=== PATIENT | male | born 1955 | race Caucasian/White ===

== ENCOUNTER → 2017-05-07 | Outpatient (CLI) | payer MEDICAID ==
--- NOTE | 2017-05-07 23:14 | MR ---
EXAMINATION TYPE: MR knee RT wo con DATE OF EXAM: 05/07/2017 COMPARISON: NONE HISTORY: Right Knee pain and swelling x6 months TECHNIQUE: Multiplanar, multisequence imaging of the right knee is performed without IV contrast. FINDINGS: There is a large knee joint effusion. The anterior and posterior cruciate ligaments are intact. There is a 2 cm area of cystic fluid signal in the posterior aspect of the medial tibial condyle. The keith ateral ligaments are intact. There is extensive abnormal increased signal in the anterior and posterior horns of the medial menisc us. This is worse in the posterior horn which is demonstrating extensive complex tear. The lateral meniscus appears intact. There is narrowing of the medial joint space. The patella appear s intact. I see no fracture. There is slight increased signal on the T2 images on both sides of the m edial joint space. This is consistent with edema. IMPRESSION: Moderate osteoarthritis in the medial joint space with extensive complex tear of the anterior and pos terior horns of the medial meniscus. This is worse in the posterior horn. Large knee joint effusion. 16 mm popliteal cyst noted posteriorly. No evidence of ligamentous tear. Bone edema on both sides of the medial joint space consistent with bone bruise. Large area of degenerative cyst formation in the posterior aspect medial tibial condyle. There is some intermediate signal material within the suprapatellar large joint effusion that could r elate to synovial chondromatosis.
== END | disposition home or self-care (01) ==
LOC: RADMRIMAIN 20:58
PROVIDERS: ATTEND Orthopaedic Surgery
DX: S83.231A Complex tear of medial meniscus, current injury, right knee, initial encounter (principal); M17.11 Unilateral primary osteoarthritis, right knee; M71.21 Synovial cyst of popliteal space [Baker], right knee; M85.661 Other cyst of bone, right lower leg

== ENCOUNTER → 2019-03-12 | Outpatient (CLI) | payer MEDICAID | LOC: LABPAT 12:03 | PROVIDERS: ATTEND Orthopaedic Surgery | DX: Z01.812 Encounter for preprocedural laboratory examination (principal) | CPT/HCPCS: 87070 ==

== ENCOUNTER → 2019-03-25 | Outpatient (CLI) | payer MEDICAID ==
--- NOTE | 2019-03-26 11:51 | ECHOF ---
Referral Reason:R94.31 Abnormal electrocardiogram [ECG] [EKG] MEASUREMENTS -------- HEIGHT: 175.3 cm WEIGHT: 70.3 kg BP: RVIDd: 4.2 cm (< 3.3) IVSd: 1.6 cm (0.6 - 1.1) LVIDd: 4.1 cm (3.9 - 5.3) LVPWd: 1.3 cm (0.6 - 1.1) IVSs: 2.2 cm LVIDs: 2.3 cm LVPWs: 2.1 cm LAESV Index (A-L): 42.23 ml/m Ao Diam: 2.9 cm (2.0 - 3.7) AV Cusp: 2.3 cm (1.5 - 2.6) LA Diam: 3.4 cm (2.7 - 3.8) TAPSE: 3.3 cm EPSS: 0.5 cm MV E Parag: 0.81 m/s MV DecT: 172 ms MV A Parag: 0.65 m/s MV E/A Ratio: 1.24 RAP: 5.00 mmHg RVSP: 34.37 mmHg MV EF SLOPE: 143.61 mm/s (70 - 150) MV EXCURSION: 1.95 cm (> 18.000) FINDINGS -------- Sinus rhythm. This was a technically good study. The left ventricular size is normal. There is moderate concentric left ventricular hypertrophy. O verall left ventricular systolic function is normal with, an EF between 65 - 70 %. The diastolic fi lling pattern is normal for the age of the patient 6.03. The right ventricle is moderate to severely enlarged. The right ventricular systolic function is m ildly impaired. LA is severely dilated >40 ml/m2 The right atrial size is normal. Interatrial and interventricular septum intact. The aortic valve is trileaflet and appears structurally normal. There is no evidence of aortic regu rgitation. There is no evidence of aortic stenosis. Mild mitral regurgitation is present. Mild tricuspid regurgitation present. There is mild pulmonary hypertension. The right ventricular systolic pressure, as measured by Doppler, is 34.37mmHg. There is no pulmonic regurgitation present. The aortic root size is normal. The inferior vena cava is mildly dilated. There is no pericardial effusion. CONCLUSIONS -------- 1. Sinus rhythm. 2. This was a technically good study. 3. The left ventricular size is normal. 4. There is moderate concentric left ventricular hypertrophy. 5. Overall left ventricular systolic function is normal with, an EF between 65 - 70 %. 6. The diastolic filling pattern is normal for the age of the patient 6.03 7. The right ventricle is moderate to severely enlarged. 8. The right ventricular systolic function is mildly impaired. 9. LA is severely dilated >40 ml/m2 10. The right atrial size is normal. 11. Interatrial and interventricular septum intact. 12. The aortic valve is trileaflet and appears structurally normal. 13. There is no evidence of aortic regurgitation. 14. There is no evidence of aortic stenosis. 15. Mild mitral regurgitation is present. 16. Mild tricuspid regurgitation present. 17. There is mild pulmonary hypertension. 18. The right ventricular systolic pressure, as measured by Doppler, is 34.37mmHg. 19. There is no pulmonic regurgitation present. 20. The aortic root size is normal. 21. The inferior vena cava is mildly dilated. 22. There is no pericardial effusion. MOMD TEACHER: Betsey Rivas RDCS
== END | disposition home or self-care (01) ==
LOC: RADECHMAIN 13:31
PROVIDERS: ATTEND Family Medicine
DX: I08.1 Rheumatic disorders of both mitral and tricuspid valves (principal); I27.20 Pulmonary hypertension, unspecified; I87.8 Other specified disorders of veins
CPT/HCPCS: 93306

== ENCOUNTER 2019-04-03 05:51 | Day surgery (SDC) | payer MEDICAID ==
[2019-03-28 08:43] VITALS: BMI 22.1
--- NOTE | 2019-04-02 13:23 | HP ---
HISTORY AND PHYSICAL Surgery is 04/03/2019. Enrique Whiteside is a 63-year-old patient seen with progressive symptomatic right knee osteoarthritis. After having treatment options discussed with him, he elected to proceed with right total knee arthroplasty. Consent regarding the procedure was obtained. Clearance was provided by [facility]. PAST MEDICAL HISTORY: Noncontributory. PAST SURGICAL HISTORY: Right shoulder arthroscopy with rotator cuff repair. DAILY MEDICATIONS: Ibuprofen. ALLERGIES: None reported. SOCIAL HISTORY: He smokes half pack of cigarettes daily. PHYSICAL EXAMINATION: Physical evaluation of the right knee: Range of motion is -2 to 110. Tenderness medial joint line. Crepitus medial patellofemoral compartments with range of motion. Pain with patellofemoral compression. Genu varum deformity. Hip rotation without pain. Distal neurovascular exam intact. Radiographs right knee, moderate to severe medial compartment and moderate patellofemoral compartment osteoarthritis. IMPRESSION: 1. Right knee osteoarthritis. 2. Tobacco use. PLAN: Right total knee arthroplasty. MMODL / IJN: [id number] /
[~2019-04-03 05:51] MED LIST: ACETAMINOPHEN TAB 500 MG TAB PO ONE; DEXAMETHASONE SOD PHOSPHATE 10 MG/ML 1 ML VIAL IV ONE; HYDROmorphone 0.5 MG/0.5 ML SYRINGE IVP PRN; LACTATED RINGERS 1,000 ML IV SCH; MELOXICAM 7.5 MG TAB PO ONE; MIDAZOLAM 2 MG/2 ML VIAL IV PRN; ONDANSETRON 4 MG/2 ML VIAL IVP ONE; TRANEXAMIC ACID 1,000 MG in SODIUM CHLORIDE 0.9% 100 ML IVPB ONE
[2019-04-03] MEDS ORDERED: PROPOFOL 10 MG/ML 20 ML VIAL IV ONE (07:28)
[2019-04-03] MEDS ORDERED: ROCURONIUM BROMIDE 10 MG/ML 10 ML VIAL IV ONE (07:28)
[2019-04-03] MEDS ORDERED: LIDOCAINE 1% INJ 10MG/ML (20 ML MDV) ONE (07:28)
[2019-04-03] MEDS ORDERED: PHENYLEPHRINE-0.9% NACL SYG 1 MG/10 ML SYRINGE ONE (07:28)
[2019-04-03] MEDS ORDERED: MIDAZOLAM 2 MG/2 ML VIAL ONE (07:28)
[2019-04-03] MEDS ORDERED: SODIUM CHLORIDE 0.9% 100 ML BAG ONE (07:28)
[2019-04-03] MEDS ORDERED: TRANEXAMIC ACID 1,000 MG/10 ML VIAL ONE (07:28)
[2019-04-03] MEDS ORDERED: HYDROmorphone (PF) 1 MG/ML ONE (07:28)
[2019-04-03] MEDS ORDERED: fentaNYL (PF) 50 MCG/ML 2 ML AMP ONE (07:28)
[2019-04-03] MEDS ORDERED: ePHEDrine SULFATE/0.9% NACL/PF 50 MG/5 ML SYRINGE IV ONE (07:28)
[2019-04-03] MEDS: ROPIVACAINE 246.25 MG, EPINEPHrine 0.5 MG, KETOROLAC 30 MG, cloNIDine HCL/PF 80 MCG, WA... MISCELLANE ONE ×10 (08:03→09:45)
[2019-04-03] MEDS ORDERED: LACTATED RINGERS 1,000 ML IV ONE ×2 (09:04→09:24)
[2019-04-03] MEDS ORDERED: ROPIVACAINE 0.2%-NS ON-Q PUMP 1,090 MG, EMPTY PAIN BALL 1 EACH MISCELLANE PRN (09:20)
[2019-04-03] MEDS ORDERED: NALOXONE 0.4 MG/ML 1 ML VIAL IV PRN (09:24)
[2019-04-03] MEDS ORDERED: ONDANSETRON 4 MG/2 ML VIAL IVP PRN (09:24)
[2019-04-03] MEDS ORDERED: HYDROmorphone 0.5 MG/0.5 ML SYRINGE IVP PRN ×2 (09:24)
[2019-04-03] MEDS ORDERED: HYDROcodone/APAP 5-325MG 1 EACH TAB PO PRN ×2 (09:24)
[2019-04-03] MEDS ORDERED: HYDROmorphone 1 MG/ML 1 ML SYRINGE IVP PRN (09:24)
--- NOTE | 2019-04-03 09:24 | P.OP ---
Date of Procedure: 04/03/19 Preoperative Diagnosis: Right knee osteoarthritis Postoperative Diagnosis: Right knee osteoarthritis Procedure(s) Performed: Right total knee arthroplasty Implants: 1. Depuy attune size 6 right cruciate retaining cemented femur 2. Depuy attune size 6 fixed bearing cruciate retaining cemented tibial baseplate 3. Depuy attune size 6 fixed bearing cruciate retaining 6 mm polyethylene tibial insert 4. Depuy attune 41 mm all polyethylene cemented patella Anesthesia: GETA, regional (Adductor canal catheter), local Surgeon: Ramirez Goetz Discharging Machine Operator #1: Justino Buckley Estimated Blood Loss (ml): 25 Pathology: other (Bone) Condition: stable Disposition: PACU Indications for Procedure: 63-year-old patient seen with symptomatic right knee osteoarthritis. After treatment options were discussed with him, he elected to proceed with total knee arthroplasty. Operative Findings: See description of procedure Description of Procedure: Patient was taken to the operative suite after having an adductor canal catheter placed by the department of anesthesia for postoperative pain management. Patient underwent a general anesthetic by the department of anesthesia. Patient was given preoperative IV intake antibiotics and TXA. A well-padded tourniquet was placed about the right lower extremity. The lower extremity was then prepped and draped in the normal sterile orthopedic fashion. The extremity was elevated, a tourniquet was insufflated to 300. A standard anterior incision was made sharply through skin. Dissection was taken down through the subcutaneous soft tissues down to the extensor mechanism. A medial arthrotomy was performed, patella was everted and knee was flexed. There was advanced osteoarthritis noted. I introduced my distal intramedullary femoral drill. I then introduced the distal femoral cutting jig. Maximino NELSON secured the cutting jig with 2 pins. I held retractors in position while Maximino NELSON performed the distal femoral resection through the guide area we now removed her distal femoral cutting guide. We now placed our 4-in-1 femoral cutting block and positioned and it was secured with 2 pins by Maximino NELSON while I held the block in position. The distal femoral finishing was now completed. A proximal tibial cutting guide was positioned. I held the guide in the appropriate position with both hands well Maximino NELSON inserted stabilizing pins into the guide. Proximal tibial cut was made. We now placed a trial femoral component into position, along with an appropriate size tibial tray and insert. We now took the knee through range of motion and had full extension good flexion and good overall soft tissue balance noted. The patella was everted and stabilized with 2 towel clips held by Mxaimino NELSON while I performed a flush with patellar quad tendon utilizing a fresh sawblade. We templated the patella, appropriate drill holes were made. An appropriate trial patella was positioned, knee was taken through full range of motion with the patella tracking very nicely. The trial patella was removed. Drill holes were made through the femoral component. All trial components were removed after marking off the appropriate rotation of the tibia. Retractors were now positioned along the proximal tibia. An appropriate keel punch was made with the appropriate size tibial guide by myself on Maximino NELSON assisted by holding retractors. At this point appropriate size implants were chosen and opened. The joint was irrigated copiously with pulse lavage mechanical irrigation. The posterior capsule was infiltrated with local analgesic. The wound was irrigated with pulse lavage mechanical irrigation. We mixed antibiotic methylmethacrylate. We placed the knee into flexion. We placed multiple retractors assisted by Maximino NELSON to expose the proximal tibia. Once the methyl methacrylate was ready, the tibial component was cemented into place removing any excess methylmethacrylate form by both myself and Maximino NELSON. The femoral component was cemented into place removing the removing any excess methylmethacrylate performed by both myself and Maximino NELSON. We then inserted the appropriate size polyethylene tibial insert. We made sure that it was locked into position. We took the knee into full extension, and then back in a flexion making sure we had removed any excess methylmethacrylate. The patellar component was then cemented down and secured with clamp. Excess methylmethacrylate removed. We kept the knee in full extension, patellar clamp in position until methylmethacrylate had hardened. Once it had hardened the patellar clamp was removed. The knee was taken through full range of motion. The patella tracked nicely. There was good soft tissue balancing. The tourniquet was now released. Additional hemostasis was achieved via electrocautery. A second gram of TXA was given. The wound again was irrigated with pulse lavage mechanical irrigation. The superficial soft tissues were infiltrated local analgesic. The extensor mechanism was repaired with Vicryl. We checked the repair with range of motion and it was stable. The subcutaneous soft tissues were repaired with Vicryl in layers. The skin was approximated with pernio/Dermabond. Sterile dressings were applied followed by loose web roll and Robert bandage. The patient was transferred to a bed, and taken to recovery in stable and satisfactory condition. Maximino NELSON assisted with this complex procedure.
[2019-04-03 09:46] VITALS: TEMP 97.6
[2019-04-03 09:50] VITALS: RESP 16
--- NOTE | 2019-04-03 10:08 | XR ---
EXAMINATION TYPE: XR knee limited RT DATE OF EXAM: 04/03/2019 CLINICAL HISTORY: Right knee pain and arthritis status post total knee replacement. TECHNIQUE: Portable AP and crosstable lateral views of the right knee are obtained immediately posto peratively. COMPARISON: None FINDINGS: Metallic hardware from total right knee arthroplasty is seen and appears satisfactory in a lignment and position. There is evidence of recent surgery with diffuse subcutaneous gas , vertical skin gaby, and percutaneous suprapatellar surgical drain noted. IMPRESSION: METALLIC HARDWARE FROM TOTAL RIGHT KNEE ARTHROPLASTY IS SATISFACTORY IN ALIGNMENT.
--- NOTE | 2019-04-03 11:11 | P.ANPRN ---
Procedure Note - Anesthesia - Nerve Block Performed Right Adductor Canal Infusion Time Out Performed: Yes Date of Procedure: 04/03/19 Procedure Start Time: 06:58 Procedure Stop Time: 07:09 Location of Patient Procedure: PreOp Indication: Acute Post-Operative Pain, Requested by Surgeon Sedation Type: Sedate with meaningful contact maintained Preparation: Sterile Prep, Sterile Dressing Position: Supine Catheter: Indwelling Needle Types: Pajunk Needle Gauge: 21 Ultrasound used to visualize needle placement: Yes Ultrasound used to observe medication spread: Yes Blood Aspirated: No Pain Paresthesia on Injection Noted: No Resistance on Injection: Normal Image Stored and Saved: Yes Events: Uneventful and Well Tolerated (ropi .5% 20cc)
[2019-04-03 12:42] VITALS: BP 149/92; PULSE 62
== END 2019-04-03 13:25 | disposition home health service (06) ==
LOC: OR 05:51
PROVIDERS: ATTEND Orthopaedic Surgery
DX: M17.11 Unilateral primary osteoarthritis, right knee (principal); F17.210 Nicotine dependence, cigarettes, uncomplicated; F17.200 Nicotine dependence, unspecified, uncomplicated; Z88.1 Allergy status to other antibiotic agents; Z98.890 Other specified postprocedural states; Z79.1 Long term (current) use of non-steroidal anti-inflammatories (NSAID); Z80.8 Family history of malignant neoplasm of other organs or systems; Z80.42 Family history of malignant neoplasm of prostate
CPT/HCPCS: 27447; 97161; 64448; 76942; 84132; 88300; 73560; C1776; C1713; J2250; J0171; J1100; J0690; J2405; J2001; J3010; J1885; J1170; J2795; J2370; J2704; J0735

== ENCOUNTER 2019-05-23 22:56 | Emergency (ER) | payer MEDICAID ==
[2019-05-23 23:04] VITALS: BP 163/85; PULSE 65; RESP 18; TEMP 97.4
--- NOTE | 2019-05-23 23:25 | ED ---
Lower Extremity Injury HPI - General Chief Complaint: Extremity Injury, Lower Stated Complaint: knee injury Time Seen by Provider: 05/23/19 23:05 Source: patient Mode of arrival: ambulatory Limitations: no limitations - History of Present Illness Initial Comments: Patient is 63-year-old male presenting to emergency Department chief complaint of knee swelling. He received a totally orthoplasty about 7 weeks ago. Patient reports he has been undergoing physical therapy and recovering well. Patient reports as baseline he does have some mild swelling but today he was at a alliance party when he fell twice but not directly on the knee. Patient does not remember the exact mechanism of the fall. Patient reports he has developed increased swelling since the incident and has pain with activation. Pain is minimal at rest. Patient reports full range of motion but states there is tightness at full flexion. Patient denies any temperature changes or erythema. At this time patient states the pain is a 3 - Related Data Home Medications Medication Instructions Recorded Confirmed Ibuprofen [Advil] 200 mg PO Q8HR PRN 03/28/19 04/03/19 Previous Rx's Medication Instructions Recorded Aspirin [Adult Low Dose Aspirin EC] 81 mg PO BID #60 tablet.dr 04/03/19 Docusate [Colace] 100 mg PO DAILY #30 capsule 04/03/19 Famotidine [Pepcid] 20 mg PO DAILY #30 tablet 04/03/19 Hydrocodone/Acetaminophen [Larose 1 each PO Q6HR PRN #28 tab 04/03/19 5-325] traMADol HCl [Ultram] 50 mg PO Q6H PRN #28 tab 04/03/19 Allergies Allergy/AdvReac Type Severity Reaction Status Date / Time hornet venom Allergy Severe Swelling Verified 04/03/19 06:27 venom-honey bee Allergy Severe Swelling Verified 04/03/19 06:27 [bee venom (honey bee)] acetaminophen [From Larose] Allergy Rash/Hives Verified 05/23/19 23:04 cephalexin monohydrate Allergy Nausea & Verified 04/03/19 06:27 [From Keflex] Vomiting hydrocodone [From Larose] Allergy Rash/Hives Verified 05/23/19 23:04 Review of Systems ROS Statement: Those systems with pertinent positive or pertinent negative responses have been documented in the HPI. ROS Other: All systems not noted in ROS Statement are negative. Past Medical History Past Medical History: Cancer, Osteoarthritis (OA) Additional Past Medical History / Comment(s): SKIN CANCER History of Any Multi-Drug Resistant Organisms: None Reported Past Surgical History: Joint Replacement Additional Past Surgical History / Comment(s): right shoulder surgery,. COLONOSCOPY Past Anesthesia/Blood Transfusion Reactions: No Reported Reaction Past Psychological History: No Psychological Hx Reported Smoking Status: Current every day smoker Past Alcohol Use History: Occasional Past Drug Use History: None Reported - Past Family History Father Family Medical History: Cancer Additional Family Medical History / Comment(s): prostate Sister(s) Family Medical History: Cancer General Exam Limitations: no limitations General appearance: alert, in no apparent distress Head exam: Present: atraumatic, normocephalic, normal inspection Eye exam: Present: normal appearance Pupils: Present: normal accommodation ENT exam: Present: normal exam Neck exam: Present: normal inspection, full ROM Respiratory exam: Present: normal lung sounds bilaterally Cardiovascular Exam: Present: regular rate, normal rhythm, normal heart sounds Extremities exam: Present: full ROM, tenderness (Minimal tenderness), normal capillary refill, joint swelling, other (+2 dorsalis pedis and posterior tibialis bilaterally. No skin discoloration or temperature changes.). Absent: normal inspection (Moderate swelling of the right knee. Scarring from arthroplasty), calf tenderness Back exam: Present: normal inspection, full ROM Neurological exam: Present: alert, oriented X3 Psychiatric exam: Present: normal affect, normal mood Skin exam: Present: warm, dry, intact, normal color Course Vital Signs 05/23/19 23:00 Temperature 97.4 F L Pulse Rate 65 Respiratory 18 Rate Blood Pressure 163/85 O2 Sat by Pulse 100 Oximetry Medical Decision Making - Medical Decision Making Patient is 63-year-old male presenting to emergency department with a chief complaint of right knee swelling. On exam patient does appear to have moderate amount of edema in the right knee. Patient has full range of motion with minimal pain. There appears to be a small laceration on top of the incision site where suspect the patient has suffered trauma. X-ray is indicative of knee effusion. Soft tissue swelling noted. Possible superior patellar chip fract ure. Knee mobilizer applied. Patient will see Dr. Goetz who performed the arthroplasty. No erythema or skin discoloration. Strict return parameters were thoroughly discussed with patient is understanding and agreeable. Case discussed with physician. Disposition Clinical Impression: Patellar sleeve fracture of right knee, Knee effusion, right Disposition: HOME SELF-CARE Condition: Good Instructions (If sedation given, give patient instructions): Patellar Fracture (ED) Additional Instructions: Please follow up with Dr. Goetz. Alternate between Tylenol and ibuprofen for pain control. Remove the immobilizer at night and apply throughout the day. Avoid weightbearing. Is patient prescribed a controlled substance at d/c from ED?: No Referrals: Roxanne Chaidez DO [Primary Care Provider] - 1-2 days Ramirez Goetz DO [Doctor of Osteopathic Medicine] - 1-2 days Time of Disposition: 00:05
--- NOTE | 2019-05-23 23:47 | XR ---
EXAMINATION TYPE: XR knee complete RT DATE OF EXAM: 05/23/2019 COMPARISON: 04/03/2019 HISTORY: Fall. Knee pain TECHNIQUE: 3 views FINDINGS: There is right knee prosthesis. There is anterior soft tissue swelling. There is soft tissu e air above the patella. There is a 2 cm bony density anterior and superior to the patella that could BE a large chip fracture from the patella. The prosthesis appears intact. IMPRESSION: Soft tissue air consistent with laceration. Knee joint effusion. Prepatellar soft tissue swelling. There is probably a large chip fracture of the superior patella.
== END 2019-05-24 00:31 | disposition home or self-care (01) ==
LOC: EC 22:56
DX: S82.091A Other fracture of right patella, initial encounter for closed fracture (principal); S81.011A Laceration without foreign body, right knee, initial encounter; M19.90 Unspecified osteoarthritis, unspecified site; F17.200 Nicotine dependence, unspecified, uncomplicated; Z88.1 Allergy status to other antibiotic agents; Z88.5 Allergy status to narcotic agent; Z88.6 Allergy status to analgesic agent; Z91.030 Bee allergy status; Z91.038 Other insect allergy status; Z79.1 Long term (current) use of non-steroidal anti-inflammatories (NSAID); Z85.828 Personal history of other malignant neoplasm of skin; Z96.651 Presence of right artificial knee joint; W19.XXXA Unspecified fall, initial encounter; Y92.89 Other specified places as the place of occurrence of the external cause
CPT/HCPCS: 99283

== ENCOUNTER 2019-05-29 13:50 | Day surgery (SDC) | payer MEDICAID ==
[2019-05-27 17:53] VITALS: BMI 22.8
--- NOTE | 2019-05-28 19:04 | HP ---
HISTORY AND PHYSICAL DATE OF SURGERY: 05/29/2019 Enrique Whiteside is a 63-year-old patient who was seen with a right knee superior pole patella fracture/quadriceps tendon rupture with history of recent total knee arthroplasty. I recommended open reduction and internal fixation of patella fracture and repair of quadriceps tendon there. I discussed the procedure, risks, complications, benefits, recovery. He was agreeable. Consent was obtained. PAST MEDICAL HISTORY: His past medical history is noncontributory. PAST SURGICAL HISTORY: Right shoulder rotator cuff repair, right total knee arthroplasty. DAILY MEDICATIONS: Ibuprofen. ALLERGIES: NONE. SOCIAL HISTORY: He smokes cigarettes. PHYSICAL EVALUATION OF THE RIGHT KNEE: His previous anterior incision is well healed. He is unable to extend his knee. There is a palpable defect involving the distal quadriceps tendon. There is a moderate effusion present. His collateral ligaments are stable. IMAGING: Radiographs of the right knee revealed superior pole patella fracture with distraction of the fracture approximately 2+ cm. The total knee arthroplasty otherwise appeared stable. IMPRESSION: 1. Right knee superior pole patella fracture with quadriceps tendon tear. 2. Right total knee arthroplasty. 3. Tobacco use. PLAN: Right knee open quadriceps tendon repair and ORIF, patella fracture. MMODL / IJN: [id number] /
[~2019-05-29 13:50] MED LIST changes: -ACETAMINOPHEN TAB 500 MG TAB PO ONE; -HYDROmorphone 0.5 MG/0.5 ML SYRINGE IVP PRN; -MELOXICAM 7.5 MG TAB PO ONE; +SCOPOLAMINE 1.5MG/72HR PATCH TRANSDERM ONE; -TRANEXAMIC ACID 1,000 MG in SODIUM CHLORIDE 0.9% 100 ML IVPB ONE; +fentaNYL (PF) 50 MCG/ML 2 ML AMP IV PRN
[2019-05-29] MEDS ORDERED: MIDAZOLAM 2 MG/2 ML VIAL ONE (15:17)
[2019-05-29] MEDS ORDERED: DEXAMETHASONE SOD PHOSPHATE 4 MG/ML 1 ML VIAL ONE (15:17)
[2019-05-29] MEDS ORDERED: ePHEDrine SULFATE/0.9% NACL/PF 50 MG/5 ML SYRINGE IV ONE (15:17)
[2019-05-29] MEDS ORDERED: fentaNYL (PF) 50 MCG/ML 2 ML AMP ONE (15:17)
[2019-05-29] MEDS ORDERED: .MORPHINE SULFATE (INJ) 10 MG/ML SYRINGE ONE (15:17)
[2019-05-29] MEDS ORDERED: ROPIVACAINE 5 MG/ML 30 ML VIAL ONE (15:17)
[2019-05-29] MEDS ORDERED: PROPOFOL 10 MG/ML 20 ML VIAL IV ONE (15:17)
[2019-05-29] MEDS ORDERED: LIDOCAINE 1% INJ 10MG/ML (20 ML MDV) ONE (15:17)
--- NOTE | 2019-05-29 15:20 | P.ANPRN ---
Procedure Note - Anesthesia - Nerve Block Performed Right Other (see comment) Single Time Out Performed: Yes (femoral) Date of Procedure: 05/29/19 Procedure Start Time: 15:00 Procedure Stop Time: 15:08 Location of Patient: PreOp Indication: Acute Post-Operative Pain, Requested by Surgeon Sedation Type: Sedate with meaningful contact maintained Preparation: Sterile Prep, Sterile Dressing Position: Supine Catheter: None Needle Types: Pajunk Needle Gauge: 20 Ultrasound used to visualize needle placement: Yes Ultrasound used to observe medication spread: Yes Injectate: 0.5% Ropivacaine (see comment for volume) (ropivacaine 0.5% 20 ml + decadron 10 mg) Blood Aspirated: No Pain Paresthesia on Injection Noted: No Resistance on Injection: Normal Image Stored and Saved: Yes Events: Uneventful and Well Tolerated
[2019-05-29] MEDS ORDERED: ceFAZolin 1,000 MG in SODIUM CHLORIDE 0.9% 1,000 ML IRRIGATION ONE (15:45)
[2019-05-29] MEDS ORDERED: LACTATED RINGERS 1,000 ML IV ONE (16:10)
[2019-05-29] MEDS ORDERED: HYDROcodone/APAP 5-325MG 1 EACH TAB PO PRN ×2 (17:06)
[2019-05-29] MEDS ORDERED: hydrOXYzine PAMOATE 25 MG CAP PO PRN (17:06)
[2019-05-29] MEDS ORDERED: HYDROmorphone 0.5 MG/0.5 ML SYRINGE IVP PRN ×2 (17:06)
[2019-05-29] MEDS ORDERED: HYDROmorphone 1 MG/ML 1 ML SYRINGE IVP PRN (17:06)
[2019-05-29] MEDS ORDERED: ONDANSETRON 4 MG/2 ML VIAL IVP PRN (17:06)
--- NOTE | 2019-05-29 17:06 | P.OP ---
Date of Procedure: 05/29/19 Preoperative Diagnosis: Right knee superior pole patella fracture and quadriceps tendon rupture Postoperative Diagnosis: 1. Right knee superior pole periprosthetic patella fracture 2. Right knee distal quadriceps tendon rupture Procedure(s) Performed: 1. Open reduction and internal fixation right knee superior pole periprosthetic patella fracture 2. Repair distal quadriceps tendon rupture right knee Implants: 24.75 Arthrex swivel lock anchors Anesthesia: GETA, regional (Adductor canal block) Surgeon: Ramirez Goetz Traffic Worker #1: Justino Buckley Estimated Blood Loss (ml): 35 Pathology: none sent Condition: stable Disposition: PACU Indications for Procedure: 63-year-old patient was seen with right superior pole periprosthetic patella fracture with probable quadriceps tendon rupture and history of total knee arthroplasty. I recommended open repair of the quadriceps tendon tear and probable ORIF patella fracture. Patient was agreeable and consent was obtained. Operative Findings: see description of procedure Description of Procedure: The patient was taken to the operative suite. The patient had undergone and adductor block for postoperative pain management. The patient underwent a general anesthetic by the department of anesthesia. The patient did receive preoperative IV antibiotics. A well-padded tourniquet was placed proximal right lower extremity. The right lower extremity was prepped and draped in the normal sterile orthopedic fashion. The extremity was elevated and tourniquet was insufflated to 300. An incision was made over the previous cicatrix sharply through skin. I immediately encountered significant hemarthrosis which was evacuated. There was a complete quadriceps tendon rupture noted. We irrigated the wound out. I palpated bony fragments superiorly consistent with an avulsion fracture superior pole patella. The total knee arthroplasty. Stable. The patellar resurfacing appeared stable. At this point I meticulously debrided out any abnormal-appearing tissue. I again irrigated the wound. At this point decided to proceed with attempting to repair the superior pole patella fracture. I made 2 drill holes into the superior pole of the patella distally and inserted 2 Arthrex 3.5 anchors. This had sutures attached. I told down most sutures and the anchors immediately came out. There was failure of those anchors. I now decided to tap for a 4.75 Arthrex anchor and I was able to do that. I now placed to #2 FiberWire through to 4.75 anchors and introduced them into the distal portion of patella. I now sewed around the superior pole proximal fragments with the fiber were suture now was able to tie those fragments right down to where they were fractured. I felt we had reasonable stability in that area. I again irrigated the wound out copiously. I now turned my attention to the quadriceps tendon rupture. Maximino NELSON and I began meticulously repairing this with #5 Ethibond with intermittent simple and Krakw type stitches anteriorly, medially and laterally. We now had an excellent repair of the quadriceps tendon. I flexed the knee to about 60 with excellent stability at the repair site noted. We again irrigated the wound. We repaired the subcutaneous soft tissues with 2-0 Vicryl. We approximated the skin with skin gaby. We applied sterile dressings. The tourniquet was now was released with immediate capillary refill noted. Sterile web bone Robert bandage were applied. The patient's extremity was placed into a knee immobilizer. He was awakened, transferred to a bed and then recovery stable condition. Maximino NELSON assisted the procedure.
[2019-05-29] MEDS: LACTATED RINGERS 1,000 ML IV SCH (17:49)
--- NOTE | 2019-05-29 18:53 | XR ---
EXAMINATION TYPE: XR knee limited RT DATE OF EXAM: 05/29/2019 COMPARISON: NONE HISTORY: Postop knee surgery TECHNIQUE: 3 views FINDINGS: There is a right knee prosthesis. Components are in anatomic position. IMPRESSION: No complicating process seen.
[2019-05-29] MEDS ORDERED: SENNOSIDES-DOCUSATE SODIUM 1 EACH TAB PO PRN (21:00)
[2019-05-30] MEDS: LACTATED RINGERS 1,000 ML IV SCH ×3 (05:14→22:04)
[2019-05-30] MEDS: ENOXAPARIN 40 MG/0.4 ML SYRINGE SQ SCH (07:06)
--- NOTE | 2019-05-30 10:37 | P.PN ---
Subjective Progress Note Date: 05/30/19 Principal diagnosis: status post ORIF right knee patella fracture and quadriceps tendon repair patient evaluated at bedside today, he is resting comfortably. He does note some discomfort throughout the knee, this is began more this morning. He's been utilizing the knee immobilizer and crutches. He denies chest pain or shortness of breath. Objective - Vital Signs Vital signs: Vital Signs Temp 98.0 F 05/30/19 01:30 Pulse 73 05/30/19 07:35 Resp 16 05/30/19 07:35 BP 126/76 05/30/19 07:35 Pulse Ox 94 L 05/30/19 07:35 Intake & Output 05/29/19 05/30/19 05/30/19 18:59 06:59 18:59 Intake Total 1351 940 Output Total 35 700 Balance 1316 240 Weight 70.307 kg Intake: IV 1351 Intake, IV Titration 350 Amount Lactated Ringers 1,000 ml 350 @ 100 mls/hr IV .Q10H MARIANO Rx#:[id number] Oral 590 Output: Urine 700 Estimated Blood Loss 35 Other: Voiding Method Toilet Toilet - Exam right lower extremity: Postoperative bandage was removed along with knee immobilizer. Marilu are in good position and condition, no drainage. Calf is soft, no tenderness with palpation. Distal neurovascular exam is intact. Assessment and Plan Plan: Assessment: Postoperative day 1 status post ORIF right periprosthetic patellar fracture, open quadriceps tendon repair Plan: Pain control, attempt tramadol. Patient took [place] and tramadol together after his knee replacement, he did develop hives after this. Benadryl to be ordered if adverse reaction is noted GI and DVT prophylaxis, aspirin 81 mg twice a day of discharge Wound care instructions discussed Weightbearing restrictions discussed Hopeful discharged to home today Time with Patient: Less than 30
[2019-05-30] MEDS: traMADol 50 MG TAB PO SCH ×3 (10:45→22:03)
--- NOTE | 2019-05-30 23:28 | P.CONS ---
History of Present Illness - Reason for Consult Consult date: 05/30/19 - Chief Complaint knee pain - History of Present Illness Enrique Dockery is a 63 yo M with PMH of OA who is admitted after a R patellar fracture. He underwent reattachment of his quadriceps tendon and patellar repair. He is doing well today, reports pain is well controlled and he has been able to ambulate today. Denies chest pain, shortness of breath, fever, chills. Review of Systems All systems: negative Constitutional: Denies chills, Denies fever Eyes: denies blurred vision, denies pain Ears, nose, mouth and throat: Denies headache, Denies sore throat Cardiovascular: Denies chest pain, Denies shortness of breath Respiratory: Denies cough Gastrointestinal: Denies abdominal pain, Denies diarrhea, Denies nausea, Denies vomiting Musculoskeletal: Reports as per HPI, Reports muscle weakness, Denies myalgias Integumentary: Denies pruritus, Denies rash Neurological: Denies numbness, Denies weakness Psychiatric: Denies anxiety, Denies depression Endocrine: Denies fatigue, Denies weight change Past Medical History Past Medical History: Cancer, Musculoskeletal Disorder, Osteoarthritis (OA) Additional Past Medical History / Comment(s): Skin CA, basal cell. Total Rt Knee 04/03/19; recent fall w/ Fx Rt patella, wearing immobilizer. History of Any Multi-Drug Resistant Organisms: None Reported Past Surgical History: Joint Replacement, Orthopedic Surgery Additional Past Surgical History / Comment(s): Right shoulder surgery w/ 4 anchors, Rt knee surg x2, Rt Total Knee 04/03/19. COLONOSCOPY Past Anesthesia/Blood Transfusion Reactions: No Reported Reaction Past Psychological History: No Psychological Hx Reported Smoking Status: Current every day smoker Past Alcohol Use History: Occasional Additional Past Alcohol Use History / Comment(s): SMOKES 1/4 PPD SINCE 1986, quit 2013; smokes cigars, 1/2 daily now. Past Drug Use History: None Reported - Past Family History Father Family Medical History: Cancer Additional Family Medical History / Comment(s): prostate CA, Melanoma Sister(s) Family Medical History: Cancer Additional Family Medical History / Comment(s): Melanoma Medications and Allergies Home Medications Medication Instructions Recorded Confirmed Type Ibuprofen [Motrin] 800 mg PO DIRECTED PRN 05/27/19 05/29/19 History Aspirin [Adult Low Dose Aspirin EC] 81 mg PO BID #60 tablet. 05/30/19 Rx Allergies Allergy/AdvReac Type Severity Reaction Status Date / Time hornet venom Allergy Severe Swelling Verified 05/29/19 14:24 venom-honey bee Allergy Severe Swelling Verified 05/29/19 14:24 [bee venom (honey bee)] cephalexin monohydrate Allergy Nausea & Verified 05/29/19 14:24 [From Keflex] Vomiting hydrocodone [From [place]] Allergy Rash/Hives Verified 05/29/19 14:24 tramadol Allergy Rash/Hives Verified 05/29/19 14:24 Physical Exam Vitals: Vital Signs Temp Pulse Pulse Resp BP Pulse Ox 05/30/19 19:46 98.8 F 74 16 163/84 97 05/30/19 13:58 98.2 F 75 16 157/91 94 L 05/30/19 07:35 73 16 126/76 94 L 05/30/19 07:10 16 05/30/19 01:30 98.0 F 70 16 114/68 96 Intake and Output 05/30/19 05/30/19 05/31/19 14:59 22:59 06:59 Intake Total 1000 240 Balance 1000 240 Intake: Oral 1000 240 Other: Voiding Method Toilet Toilet # Voids 4 General: well nourished, well developed, NAD. Vitals reviewed Eyes: PERRL, EOMI, conjunctiva normal HENT: normocephalic, mucus membranes moist Neck: supple, no JVD Lungs: normal respiratory effort, no wheezes or rales CV: Regular rate and rhythm, no murmur. Peripheral pulses 2+ Abdomen: soft, nondistended, no organomegaly Ext: Rufino LE no edema. R knee brace in place Lymph: no cervical or axillary LAD Skin: warm and dry. Neuro: A&Ox3, normal mood and affect Assessment and Plan (1) Hypertension Current Visit: Yes Status: Acute Code(s): I10 - ESSENTIAL (PRIMARY) HYPERTENSION SNOMED Code(s): 11746769 (2) Knee effusion, right Current Visit: No Status: Acute Code(s): M25.461 - EFFUSION, RIGHT KNEE SNOMED Code(s): 485542911692888 (3) Patellar sleeve fracture of right knee Current Visit: No Status: Acute Code(s): S82.091A - OTH FRACTURE OF RIGHT PATELLA, INIT FOR CLOS FX SNOMED Code(s): 12856389 Plan: 1. Patellar fracture and quadriceps tear s/p ORIF. Management per ortho. Doing well 2. Hypertension. Noted today on vitals. No previous history. Consider starting antihypertensive if persistent DVT prophylaxis lovenox
[2019-05-31] MEDS: ENOXAPARIN 40 MG/0.4 ML SYRINGE SQ SCH (08:33)
[2019-05-31] MEDS: traMADol 50 MG TAB PO SCH ×2 (08:34→12:58)
[2019-05-31] MEDS: LACTATED RINGERS 1,000 ML IV SCH (08:35)
[2019-05-31 10:36] VITALS: BP 155/83; PULSE 76; RESP 18; TEMP 98
--- NOTE | 2019-05-31 11:18 | P.PN ---
Subjective Enrique Dockery is a 63 yo M with PMH of OA who is admitted after a R patellar fracture. He underwent reattachment of his quadriceps tendon and patellar repair. He is doing well today, reports pain is well controlled and he has been able to ambulate today. Denies chest pain, shortness of breath, fever, chills. 05/31/2019 this is a pleasant 63 years old male who presented for right knee patellar fracture status post OR ORIF and quadriceps tendon repair.today is postoperative day #2. Patient pain yesterday at the surgical site is much improved today. He denies other symptoms. No headache, no chest pain, no dyspnea, no bowel or urinary problem. He is eating and having bowel movement.blood pressure is 155/83, patient says this his usual blood pressure and could be related to pain, also he is on IV fluids.patient wants to follow up with his PCP to check his blood pressure again and start antihypertensive if indicated. Patient is counse led about compliance and he agrees to follow-up with instructions. Objective - Vital Signs Vital signs: Vital Signs Temp 98.4 F 05/31/19 01:50 Pulse 73 05/31/19 01:50 Resp 16 05/31/19 01:50 BP 162/80 05/31/19 01:50 Pulse Ox 94 L 05/31/19 01:50 Intake & Output 05/30/19 05/31/19 05/31/19 18:59 06:59 18:59 Intake Total 1240 20 Balance 1240 20 Intake: Oral 1240 20 Other: Voiding Method Toilet Toilet Toilet # Voids 4 2 - Exam GENERAL: The patient is alert and oriented x3, not in any acute distress. Well developed, well nourished. HEENT: Pupils are round and equally reacting to light. EOMI. No scleral icterus. No conjunctival pallor. Normocephalic, atraumatic. No pharyngeal erythema. No thyromegaly. CARDIOVASCULAR: S1 and S2 present. No murmurs, rubs, or gallops. PULMONARY: Chest is clear to auscultation, no wheezing or crackles. ABDOMEN: Soft, nontender, nondistended, normoactive bowel sounds. No palpable organomegaly. MUSCULOSKELETAL: No joint swelling or deformity. -EXTREMITIES: No cyanosis, clubbing, or pedal edema. right knee dressing is in place, we'll defer the rest of the exam to the surgery primary team NEUROLOGICAL: Gross neurological examination did not reveal any focal deficits. SKIN: No rashes. no petechiae. Assessment and Plan Assessment: ight knee patellar fracture status post OR ORIF and quadriceps tendon repair osteoarthritis History of skin cancer Plan: this is a pleasant 63 years old male who presents for right patellar repair and quadriceps tendon repair. Doing well postoperatively. Pain management and DVT prophylaxis as per surgery primary team. Labs and medication were reviewed.. Continue same treatment. Continue with symptomatic treatment. Resume home medication. Monitor lytes and vitals. DVT and GI prophylaxis. Further recommendations of the clinical course of the patient thank you for consulting us
--- NOTE | 2019-05-31 13:12 | P.DS ---
Providers Date of admission: 05/29/2019 Expected date of discharge: 05/31/19 Attending physician: Ramirez Goetz Consults: 05/29/19 17:06 Consult Physician Routine Consulting Provider: Christoph Sawyer Reason/Comments: medical management Do you want consulting provider notified?: Yes Primary care physician: Roxanne Chaidez Hospital Course: Date of admission: 05/29/2019 Date of discharge: 05/31/2019 Admission diagnosis: status post ORIF right knee periprosthetic patellar fracture, open quadriceps tendon repair Discharge diagnosis: same Attending physician: Dr. Goetz Surgical procedures: ORIF right knee periprosthetic patellar fracture, open quadriceps tendon repair Brief history: Patient is a 63-year-old male with a history of a right knee replacement about [address] Goetz. Patient had been doing very well with his rehab, he did have a fall on 05/23/2019. He was evaluated in the outpatient setting by Dr. Goetz. It was determined that the patient had a periprosthetic patellar fracture along with a quadriceps tendon tear. He was scheduled for surgery on 05/29/2019. Hospital course: Details of patient's surgery can be found in operative report. Patient tolerated the procedure well and was subsequently transported to orthopedic floor. Patient's orthopeidc and medical care was provided daily. Patient had daily laboratory tests performed for evaluation of overall blood counts . Patient had daily physical therapy to include strengthening range of motion as well as education with walker ambulation. Patient had daily CPM usage as part of their physical therapy program. Patient was treated with Lovenox for their postoperative DVT prophylaxis during their inpatient stay. Patient was noted to have a relatively uneventful postoperative course. Patient reported satisfactory pain control with oral pain medications by postoperative day 0. Patient showed satisfactory progress with physical therapy. Patient moved s teadily through the program and had no difficulty meeting the goals by postoperative day 1. Given patient's otherwise satisfactory course and having met physical therapy goals, plan is to discharge patient home on postoperative day 1. Discharge condition/disposition: Patient will be discharged home in stable condition. Discharge medications: Instructions are given on resumption of patient's normal daily medications per primary care recommendation, in addition patient will be prescribed aspirin 81mg . Discharge instructions: 1. Wound care and infection precautions, keep incision dry and covered while showering, no lotions, creams, moisturizers. No soaking, tubs, pools, hottubs. Do not scrub over the incision. 2. Nonweightbearing, utilize crutches and knee immobilizer 3. Ice and elevate when necessary. Do not exceed 20 minutes per hour with ice pack. 4. Utilize compression sleeve until seen at first follow up appointment. 5. Visiting nursing care. 7. Pain meds and anticoagulants per prescription. 8. Pain medication has potential to cause constipation. Increase oral fluid and fiber intake. Contact primary care provider if you have not had a bowel movement within 48 hours after discharge 9. No anti-inflammatory medication until discussed at first post operative visit, this including Motrin, Aleve, Mobic, Diclofenac 10. Follow up in office at 2 weeks postop with Maximino Buckley PA-C 11. Follow up with your primary care doctor 7-10 days after discharge. 12. Contact [facility] with any questions, . Procedures: over reduction internal fixation periprosthetic right patellar fracture, open quadriceps tendon repair right knee Patient Condition at Discharge: Good Plan - Discharge Summary Discharge Rx Participant: Yes New Discharge Prescriptions: New Aspirin [Adult Low Dose Aspirin EC] 81 mg PO BID #60 tablet. No Action Ibuprofen [Motrin] 800 mg PO DIRECTED PRN PRN Reason: Pain Discharge Medication List Ibuprofen [Motrin] 800 mg PO DIRECTED PRN 05/27/19 [History] Aspirin [Adult Low Dose Aspirin EC] 81 mg PO BID #60 tablet. 05/30/19 [Rx] Follow up Appointment(s)/Referral(s): Justino Buckley PAC [PHYSICIAN [employer]ER OPERATOR] - 06/13/19 4:30 pm Patient Instructions/Handouts: *Surgery [facility] - (Anesthesia) Discharge Instructions Outpatient Surgery Activity/Diet/Wound Care/Special Instructions: Discharge instructions: 1. Non weightbearing on right lower extremity 2. Knee immobolizer when up 3. Crutches or walker at all time 4. Ice and elevate often 5. Keep gaby covered while showering 6. Aspiin 81mg bid for 2 weeks 7. Follow up at [facility] in 2 weeks Discharge Disposition: HOME SELF-CARE
== END 2019-05-31 15:03 | disposition home or self-care (01) ==
LOC: OR 13:50 → 4SSUR 17:13 → OR 05-31 15:03
PROVIDERS: ATTEND Orthopaedic Surgery
DX: M97.11XA Periprosthetic fracture around internal prosthetic right knee joint, initial encounter (principal); S76.111A Strain of right quadriceps muscle, fascia and tendon, initial encounter; I10 Essential (primary) hypertension; F17.210 Nicotine dependence, cigarettes, uncomplicated; Z96.651 Presence of right artificial knee joint; Z88.1 Allergy status to other antibiotic agents; Z88.6 Allergy status to analgesic agent; Z88.5 Allergy status to narcotic agent; Z91.030 Bee allergy status; Z98.890 Other specified postprocedural states; Z85.828 Personal history of other malignant neoplasm of skin; Z80.42 Family history of malignant neoplasm of prostate; Z80.8 Family history of malignant neoplasm of other organs or systems; Z79.82 Long term (current) use of aspirin; W19.XXXA Unspecified fall, initial encounter
CPT/HCPCS: 97161; 64447; 76942; 73560; 27524; 27385; C1713; J2250; J1100 ×2; J2270; J0690 ×3; J2405; J2001; J1650 ×2; J3010; J2795; J2704; J1170

== ENCOUNTER → 2025-01-07 | Outpatient (CLI) | payer MEDICARE ==
--- NOTE | 2025-01-07 11:39 | MR ---
EXAMINATION TYPE: MR Prostate wo/w con DATE OF EXAM: 01/07/2025 7:27 AM COMPARISON: None. CLINICAL INDICATION: Male, 69 years old with history of R97.20 ELEVATED PROSTATE SPECIFIC ANTIGEN [PS A]; Elevated PSA TECHNIQUE: Multi-planar, multi-sequence imaging of the pelvis is performed prior to and following the uncomplicated administration of bolus intravenous gadolinium. IV Contrast: 7 mL Gadobutrol Interpretive Criteria: PI-RADS v2.1 SERUM PSA: 09/2024=32.4 SURGICAL PATHOLOGY: No data available. FINDINGS: Prostatic dimensions: 5.4 x 5.2 x 3.9 cm. Ellipsoid Volume:57.34 (PSA density=0.57 ng/mL/mL) CENTRAL GLAND (Central and Transition Zones/CZ+TZ): Anterior left mid gland/base low T2 high DWI and low ADC region measuring up to 3.1 x 2.1 x 1.8 cm no obvious extracapsular extension. This does run along the margin of the prostate gland a significant distance greater than 2.0 cm. (PI-RADS 5) PERIPHERAL ZONE (PZ): Bilateral linear, indistinct wedgelike areas of low ADC, and low T2 signal, No evidence of masslike a bnormality, or localized perfusional hypervascularity, to further suggest a focus of clinically signi ficant prostate cancer. (PI-RADS 2) SEMINAL VESICLES (SV): Symmetric and unremarkable. PERIPROSTATIC TISSUES: Unremarkable. LYMPH NODES: No enlarged pelvic lymph node. No greater than 1.0 cm short axis lymph nodes identified. REMAINING PELVIS: Bladder wall is within normal limits given distention. No abnormal free or organized intrapelvic fluid collection. No pathologic bowel dilation or mural thickening. Colonic diverticula are present. No hernia visualized OSSEOUS STRUCTURES: No suspicious osseous abnormality. IMPRESSION: 1. PI-RADS 5 Lesion in the left central zone, mid gland and base measuring 3.1 x 2.1 x 1.8 cm. 2. Moderate BPH, estimated gland volume 57.34 (PSA density=0.57 ng/mL/mL). 3. Motion limited exam of the pelvis, no suspicious osseous lesion. No lymphadenopathy. No evidence o f prostate adenocarcinoma involving the periprostatic tissues. 4. Colonic diverticulosis. [facility], , 01/07/2025 11:36 AM
== END | disposition home or self-care (01) ==
LOC: RADMRIMAIN 05:49
PROVIDERS: ATTEND Urology
DX: N40.0 Benign prostatic hyperplasia without lower urinary tract symptoms (principal); R97.20 Elevated prostate specific antigen [PSA]; K57.30 Diverticulosis of large intestine without perforation or abscess without bleeding
CPT/HCPCS: 72197; A9585